=== PATIENT | male | born 1950 | race Caucasian/White ===

== ENCOUNTER → 2023-10-26 07:57 | Outpatient (REF) | payer MEDICARE, SELFPAY | LOC: RAD 07:57 | PROVIDERS: ATTENDING PHYSICIAN Internal Medicine; FAMILY PHYSICIAN Internal Medicine | DX: I65.23 Occlusion and stenosis of bilateral carotid arteries (principal) | CPT/HCPCS: 93880 ==

== ENCOUNTER → 2024-01-05 07:52 | Outpatient (REF) | payer MEDICARE, SELFPAY | LOC: RAD 07:52 | PROVIDERS: ATTENDING PHYSICIAN Internal Medicine; FAMILY PHYSICIAN Internal Medicine | DX: I65.22 Occlusion and stenosis of left carotid artery (principal); R22.1 Localized swelling, mass and lump, neck | CPT/HCPCS: 70498; Q9967 ==

== ENCOUNTER → 2024-01-09 10:02 | Outpatient (REF) | payer MEDICARE, SELFPAY ==
[2024-01-11 21:43] LABS: PSA, Ultrasensitive <0.01 ng/mL (0.00-4.00)
== END ==
LOC: REG 10:02
PROVIDERS: ATTENDING PHYSICIAN Urology; FAMILY PHYSICIAN Internal Medicine
DX: C61 Malignant neoplasm of prostate (principal)
CPT/HCPCS: 36415; 84153